=== PATIENT | male | born 1955 | race Caucasian/White ===

== ENCOUNTER 2019-08-24 09:37 | Inpatient (IN) | payer OTHER, MEDICARE ==
[~2019-08-24] VITALS: Ht 182.9 cm; Wt 62.1 kg
[2019-08-24 10:40] LABS: BASOPHILS ABSOLUTE AUTO 0.05 K/mm3 (0.00-0.23); BASOPHILS PERCENT AUTO 0 % (0-2); EOSINOPHILS ABSOLUTE AUTO 0.03 K/mm3 (0.00-0.68); EOSINOPHILS PERCENT AUTO 0 % (0-6); Hematocrit 38.5 % (37.0-53.0); Hemoglobin 11.9 g/dL (13.5-17.5); IMMATURE GRAN ABSOLUTE AUTO 0.06 K/mm3 (0.00-0.10); IMMATURE GRAN PERCENT AUTO 0 % (0-1); LYMPHOCYTES ABSOLUTE AUTO 1.93 K/mm3 (0.84-5.20); LYMPHOCYTES PERCENT AUTO 12 % (21-46); MONOCYTES PERCENT AUTO 7 % (4-13); Mean Corpuscular HGB 29.3 pg (26.0-34.0); Mean Corpuscular HGB Conc 30.9 g/dL (31.5-36.5); Mean Corpuscular Volume 95 fL (80-100); Mean Platelet Volume 10.9 fL (9.1-12.4); NEUTROPHILS ABSOLUTE AUTO 12.91 K/mm3 (1.96-9.15); NEUTROPHILS PERCENT AUTO 80 % (41-73); Platelet Count 398 K/mm3 (150-400); RDW Coefficient Variation 13.4 % (11.7-14.2); RDW Standard Deviation 46.3 fL (35.1-46.3); Red Blood Cell Count 4.06 M/mm3 (4.30-5.90); White Blood Cell Count 16.08 K/mm3 (4.00-11.30)
[2019-08-24 10:58] LABS: PO2 Arterial 55.2 mmHg (80-100); pH Blood Arterial 7.48 (7.35-7.45)
--- NOTE | 2019-08-24 11:27 | NUR ---
Pt recieved from [facility]. Nursing and RT at bedside attemtpting to stabilize pt and keep of life support. arrived Very tearfull and anxious. Review of pt with states they have had much medical care from different facilities and providers the past few months. PT relays that he had a stroke and was on a ventilator he recovered and went to rehab. He later returned to hospital with aspiration pneumonia and weakness. He now has a PEG tube and chronic decline. They do not have a primary care and presented to services in [place]. He has a polst for 08/19/2019 that is full treatment. review of the past few months with the and suggested he is declining. She sees him as having pulled through and is adamant he reamin full code. Review of her experience of life support and how this time may be different and she may need to make a had decison if treatment does not work. She wants intubation and to try to keep him going she is calling her son to come out from [place]. She understand he [facility]. Notified ER physician of conversation. RT has been working with her and keeping her updated. Notieied Notifed Dr. Kiersten Borden of pt being in ER. Asked that she call ER physician or pt to help with with decisional process. Asked to call son and discuss a plan. contacting family. Will stand by and await labs and further plan to assist . Pretty tough blunt conversation will give her a little space to process. Will see if she needs spirtual support. pt KPS score is 20.
[2019-08-24] MEDS ORDERED: FIBERSOURCE H1500 ML (11:57)
[2019-08-24] MEDS ORDERED: Humalog100 UNIT/1 SC ×2 (11:58→18:12)
[2019-08-24 12:14] LABS: Alanine Aminotransfer (ALT/SGP 30 U/L (12-78); Albumin, Blood 2.6 g/dL (3.4-5.0); Albumin/Globulin Ratio 0.4 (0.8-1.8); Alk Phos 117 U/L (50-136); Anion Gap 5 mmol/L (6-16); Aspartate Aminotrans (AST/SGOT 37 U/L (12-37); Bilirubin, Total 0.3 mg/dL (0.1-1.0); Blood Urea Nitrogen 21 mg/dL (8-24); CO2, Blood 31 mmol/L (21-32); Chloride, Blood 108 mmol/L (98-108); Creatinine, Blood 0.72 mg/dL (0.60-1.20); Glomerular Filtration Rate >60 (60-); Glucose, Blood 105 mg/dL (70-99); Potassium, Blood 3.9 mmol/L (3.5-5.5); Sodium, Blood 144 mmol/L (136-145); Total Protein, Blood 8.6 g/dL (6.4-8.2)
[2019-08-24 12:19] LABS: Adenovirus Not Detected (NOT DETECT); Bordetella pertussis Not Detected (NOT DETECT); Chlamydophila pneumoniae Not Detected (NOT DETECT); Coronavirus 229E Not Detected (NOT DETECT); Coronavirus HKU1 Not Detected (NOT DETECT); Coronavirus NL63 Not Detected (NOT DETECT); Coronavirus OC43 Not Detected (NOT DETECT); Human Metapneumovirus Not Detected (NOT DETECT); Human Rhinovirus/Enterovirus Not Detected (NOT DETECT); Influenza A/2009-H1 Not Detected (NOT DETECT); Influenza A/H1 Not Detected (NOT DETECT); Influenza A/H3 Not Detected (NOT DETECT); Influenza B Not Detected (NOT DETECT); Mycoplasma pneumoniae Not Detected (NOT DETECT); Parainfluenza Virus 1 Not Detected (NOT DETECT); Parainfluenza Virus 2 Not Detected (NOT DETECT); Parainfluenza Virus 3 Not Detected (NOT DETECT); Parainfluenza Virus 4 Not Detected (NOT DETECT); Respiratory Syncytial Virus Not Detected (NOT DETECT)
[2019-08-24] MEDS ORDERED: ATOR80 PT (12:56)
[2019-08-24] MEDS ORDERED: Prevacid Soluta30 MG PT (12:56)
[2019-08-24] MEDS ORDERED: LEVE500 PT (12:57)
[2019-08-24] MEDS ORDERED: METO25 PT (12:57)
[2019-08-24] MEDS ORDERED: BACL10 PT (12:58)
[2019-08-24] MEDS ORDERED: ACET325 PT (12:58)
[2019-08-24] MEDS ORDERED: Venlafaxine HCl50 MG PT (12:58)
[2019-08-24] MEDS ORDERED: ALBU2.5V5 NEB (12:59)
[2019-08-24] MEDS ORDERED: Morphine S10 MG/5 ML PT (13:02)
[2019-08-24] MEDS ORDERED: MYLANTA TONIGH355 ML PT (18:08)
[2019-08-24] MEDS ORDERED: SENEXON-S 50-81 EACH PT (18:09)
--- NOTE | 2019-08-24 19:03 | NUR ---
Review of pt with nught shift RT and strategies to interact with on decision making. Will follow up to see if spoke with son and what am labs show.
--- NOTE | 2019-08-24 19:05 | NUR ---
SHIFT SUMMARY PT ARRIVED TO PCU FROM ED VIA STRETCHER AROUND 1530. PT ADMITTED FOR SEPSIS SECONDARY TO PNA; ALSO TESTING FOR R/O COVID-19. PT IS AWAKE, RESPONDS TO VERBAL STIMULI, BUT DOES NOT VERBALLY COMMUNICATE; UNABLE TO ASSESS ORIENTATION STATUS. PT W/ RIGHT-SIDED DEFICITS DUE TO RECENT CVA IN APR 2019. PT PLACED ON AIRVO IN ED DUE TO LOW SATS; REMAINS ON AIRVO AT 30% FIO2, PULSE OX MAINTAINING 94-97%. HR ELEVATED ST 120'S UPON ARRIVAL TO FLOOR; AFTER ADMINISTRATION OF MEDS PT RUNNING ST 100-110'S; REMAINS AFEBRILE SINCE ARRIVAL TO FLOOR. PLAN TO CONTINUE W/ IVF & IV ABX. PT HAS PEG TUBE W/ CONTINUOUS TF, JEVITY 1.2 CURRENTLY RUNNING @ 25ML/HRL; TO BE INCREASED BY 10ML/HR Q8H TO GOAL RATE OF 40ML/HR. PT RESTING COMFORTABLY IN BED. ROSARIO AT BEDSIDE, COMPLIANT W/ ISOLATION PRECAUTIONS. REPORT GIVEN TO ONCOMING RN.
--- NOTE | 2019-08-24 19:46 | NUR ---
ASSUMED PATIENT CARE. PATIENT RESTING COMFORTABLY IN BED, AIRVO ON. NO SIGNS OF ACUTE DISTRESS, SPOUSE AT BEDSIDE. WCTM.
[2019-08-25 05:41] LABS: BASOPHILS ABSOLUTE AUTO 0.04 K/mm3 (0.00-0.23); BASOPHILS PERCENT AUTO 0 % (0-2); EOSINOPHILS ABSOLUTE AUTO 0.02 K/mm3 (0.00-0.68); EOSINOPHILS PERCENT AUTO 0 % (0-6); Hemoglobin 10.1 g/dL (13.5-17.5); IMMATURE GRAN ABSOLUTE AUTO 0.09 K/mm3 (0.00-0.10); IMMATURE GRAN PERCENT AUTO 1 % (0-1); LYMPHOCYTES ABSOLUTE AUTO 1.96 K/mm3 (0.84-5.20); LYMPHOCYTES PERCENT AUTO 12 % (21-46); MONOCYTES ABSOLUTE AUTO 0.98 K/mm3 (0.16-1.47); MONOCYTES PERCENT AUTO 6 % (4-13); Mean Corpuscular HGB 30.1 pg (26.0-34.0); Mean Corpuscular HGB Conc 31.6 g/dL (31.5-36.5); Mean Corpuscular Volume 95 fL (80-100); Mean Platelet Volume 10.2 fL (9.1-12.4); NEUTROPHILS ABSOLUTE AUTO 13.59 K/mm3 (1.96-9.15); NEUTROPHILS PERCENT AUTO 82 % (41-73); Platelet Count 309 K/mm3 (150-400); RDW Coefficient Variation 13.2 % (11.7-14.2); RDW Standard Deviation 45.1 fL (35.1-46.3); Red Blood Cell Count 3.36 M/mm3 (4.30-5.90); White Blood Cell Count 16.68 K/mm3 (4.00-11.30)
[2019-08-25 06:02] LABS: Alanine Aminotransfer (ALT/SGP 28 U/L (12-78); Albumin, Blood 2.1 g/dL (3.4-5.0); Albumin/Globulin Ratio 0.4 (0.8-1.8); Alk Phos 98 U/L (50-136); Anion Gap 5 mmol/L (6-16); Aspartate Aminotrans (AST/SGOT 39 U/L (12-37); Bilirubin, Total 0.5 mg/dL (0.1-1.0); Blood Urea Nitrogen 14 mg/dL (8-24); Bun/Creatinine Ratio 23.7 (12.0-20.0); CO2, Blood 27 mmol/L (21-32); Calcium, Blood 8.4 mg/dL (8.5-10.1); Chloride, Blood 111 mmol/L (98-108); Creatinine, Blood 0.59 mg/dL (0.60-1.20); Globulin, Blood 5.5 g/dL (2.2-4.0); Glomerular Filtration Rate >60 (60-); Glucose, Blood 110 mg/dL (70-99); Magnesium, Blood 2.2 mg/dL (1.6-2.4); Phosphorus, Blood 2.8 mg/dL (2.5-4.9); Potassium, Blood 3.5 mmol/L (3.5-5.5); Sodium, Blood 143 mmol/L (136-145); Total Protein, Blood 7.6 g/dL (6.4-8.2)
--- NOTE | 2019-08-25 06:19 | NUR ---
NO ACUTE EVENTS THIS SHIFT. PATIENT REMAINED ON TUBE FEED THIS SHIFT, MINIMAL TO NO RESIDUALS NOTED WITH EACH MEDICATION ADMINISTRATION. PATIENT TOLERATED REPOSITIONING BY 2 STAFF MEMBERS WELL. PATIENT ON AIRVO THIS SHIFT, O2 SATURATION IN THE 90S. PATIENT REMAINED IN SINUS TACH THIS SHIFT.
--- NOTE | 2019-08-25 14:36 | NUR ---
Spiritual care visit conducted. Patient is lying in bed and reny's Jane is bedside. I ask Jane if she could come out of patient's room and talk with me for a few moments. Jane sits outside patient's room and tells the story of their life of 44 years of being , their family, their sahil, their assisted and patient's medical history. Jane talks about being prepared if patient doesn't make it but wanting to do everything as far as treatment goes until then. I try to establish therapeutic alliance and listen empathically. I also go into patient's room with Jane and provide prayer according to their belief system and their amish tradition. Jane voices appreciation. I will continue to remain available to patient and family.
--- NOTE | 2019-08-25 19:00 | NUR ---
ASSUMED CARE ASSUMED CARE OF PATIENT. IS AT BEDSIDE. PT REMAIN IN AIRBORNE ISOLATION PRECAUTIONS FOR R/O COVID-19. REMAINS ON AIRVO 50L/FIO2 77%. RESPIRATIONS UNLABORED, BUT SHALLOW. OCCASIONAL MOIST COUGH. JEVITY 1.2 VIA PEG TUBE AT GOAL RATE OF 40CC/HR WITH 135CC H20 Q4H. INCONTINENT OF URINE- ATTENDS IN PLACE. SEE SHIFT ASSESSMENT FOR FULL ASSESSMENT.
--- NOTE | 2019-08-25 19:00 | NUR ---
SHIFT SUMMARY PT CURRENTLY RESTING IN BED IN NO DISTRESS. PT DID DESAT INTO THE 80'S AT ONE POINT ON AIRVO; RT BUMPED PT UP TO 50L, 80% FI02; PULSE OX MAINTAINING 95-97%. NO OTHER ACUTE CHANGES THROUGHOUT SHIFT. PT TOLERATING TUBE FEEDS WELL VIA PEG; JEVITY 1.2 SDAAF RUNNING @ GOAL RATE OF 40ML/HR. Q2HR TURNS, FREQ MOUTH CARE, & FREQ INCONTINENCE CARE RENDERED THROUGHOUT SHIFT. PT TO CONTINUE W/ IVF & IV ABX FOR PNA. COVID-19 RESULTS STILL PENDING, PT REMAINS IN ISOLATION. PT DOES NOT COMMUNICATE VERBALLY, BUT DOES NOT SHOW SIGNS OF PAIN OR SOB. REPORT GIVEN TO ONCOMING RN.
--- NOTE | 2019-08-25 19:22 | NUR ---
Extensive visit with regarding plan of care. She relayed her journey with her husbands care over the past few months...very stressful. She needs help with a plan for his medicare needs. We reviewed further rehab potential and eventual hospice and and advance care plan of each stage. Review with child care group leader of pt needs and needs. Best plan would be getting him to where he can attemtp rehab and back to [place] and transition to hospice if rehab fails. Will assist with getting her resources of information and incourage dialoge with her son. Pt does not drive well and is showing significant fatigue and caregiver stress. Chaplisamy Talamantes has given her significant support. At this point she wants to stay the course.
--- NOTE | 2019-08-26 06:22 | NUR ---
SHIFT SUMMARY NO ACUTE CHANGES DURING NOC. REMAINS IN AIRBORNE ISOLATION FOR R/O COVID-19. AT BEDSIDE T/O NOC. REPOSITIONED AND ATTENDS CHANGED APPROXIMATELY Q 2-3H PRN. NS INFUSING @ 150CC/HR. REMAINS ON AIRVO. SATS STABLE. CONTINUES WITH MOIST COUGH, OCCASIONALLY PRODUCTIVE OF THICK TANNISH-YELLOW SPUTUM. VSS T/O NOC. TMAX 100.0F. WILL REPORT TO DAY SHIFT RN WHEN AVAILABLE.
--- NOTE | 2019-08-26 08:30 | NUR ---
PT REMAINS NON-VERBAL. NO NOTED NEURO CHANGES. PT SEEMS TO RECOGNIZE HIS SPOUSE AND RESPONDS TO HER AT TIMES. PT OPENED HIS MOUTH WHEN RN ASKED HIM TO PRIOR TO ORAL CARE. TEMP 99.4 HR 100-110'S ST. BP WNL. LUNGS REMAIN COARSE T/O AND DIMINISHED IN BASES. ORAL CARE/YANKEUR SUCTION PRODUCTIVE OF COPIOUS, THICK, YELLOW TINGED SECRETIONS. SATS>90% ON AIRVO. TOLERATED PEG TF WELL. CBG 74-NO COVERAGE REQUIRED. PT INCONTINENT OF URINE-JESSE CARE DONE AND CALAZIME APPLIED TO EXCORIATE AREA. NO NOTED REDNESS TO COCCYX OR BUTTOCKS-CONTINUE TO TURN Q 2 HOURS. PT REMAINS IN ENHANCED PRECAUTIONS. NO RESULTS FOR [id number] PENDING. DISCUSSED PLAN OF CARE WITH PT SPOUSE-HER ONLY QUESTION WAS IN REGARD TO COVID-19 TESTING-PT SPOUSE AWARE THAT RESULTS OF THIS ARE NOT BACK YET.
--- NOTE | 2019-08-26 10:01 | NUR ---
Attempted to wean oxygen from 50L flow on Airvo and 50 %, as spo2 was 99% while Dr. Corona was here in the room; however, slight adjustment resulted in spo2 dropping to 86%. Heart rate stayed constant at 100s , less than 115 bpm. Oxygen was returned to its original flow and spo2 improved back to 98%.
--- NOTE | 2019-08-26 15:54 | NUR ---
PT SPOUSE SUMMONED RN TO ROOM PT SATS 83%-ORAL CARE AND YANKEUR SUCTION PRODUCTIVE OF MODERATE AMOUNT OF THICK, YELLOW SECRETIONS- AIRVO @ 40 L/MIN WITH FIO2 51%-SATS RETURNED TO >90% AFTER SUCTIONING.LUNGS TIGHT THROUGH OUT.
--- NOTE | 2019-08-26 17:48 | NUR ---
PT MAINTAINING SATS>90% NO NOTED SOB OR INCREASED WOB AT THIS TIME. INCONTINENT OF BOTH URINE AND STOOL. COMPLET BED BATH AND LINEN CHANGE COMPLETED. PT REPOSTIONED TO RIGHT SIDE.
--- NOTE | 2019-08-26 18:16 | NUR ---
SPOKE WITH REGARDING CBG Q 6 HOURS. PATIENT HAS NOT REQUIRED COVERAGE. PHONE ORDER GIVEN TO DISCONTINUE CBG AND COVERAGE.
--- NOTE | 2019-08-26 19:22 | NUR ---
NO ACUTE CHANGES. REPORT GIVEN TO JENNIFER KOENIG.
[2019-08-27 06:05] LABS: Hematocrit 26.3 % (37.0-53.0); Hemoglobin 8.5 g/dL (13.5-17.5); Mean Corpuscular HGB 29.7 pg (26.0-34.0); Mean Corpuscular HGB Conc 32.3 g/dL (31.5-36.5); Mean Platelet Volume 10.1 fL (9.1-12.4); Platelet Count 219 K/mm3 (150-400); RDW Coefficient Variation 12.6 % (11.7-14.2); RDW Standard Deviation 42.2 fL (35.1-46.3); Red Blood Cell Count 2.86 M/mm3 (4.30-5.90); White Blood Cell Count 6.75 K/mm3 (4.00-11.30)
[2019-08-27 06:07] LABS: Mean Corpuscular Volume 92 fL (80-100)
[2019-08-27 06:21] LABS: Albumin, Blood 1.8 g/dL (3.4-5.0); Anion Gap 5 mmol/L (6-16); Blood Urea Nitrogen 10 mg/dL (8-24); Bun/Creatinine Ratio 23.3 (12.0-20.0); CO2, Blood 28 mmol/L (21-32); Calcium, Blood 8.1 mg/dL (8.5-10.1); Chloride, Blood 107 mmol/L (98-108); Creatinine, Blood 0.43 mg/dL (0.60-1.20); Glomerular Filtration Rate >60 (60-); Glucose, Blood 126 mg/dL (70-99); Phosphorus, Blood 2.2 mg/dL (2.5-4.9); Potassium, Blood 2.9 mmol/L (3.5-5.5); Sodium, Blood 140 mmol/L (136-145)
--- NOTE | 2019-08-27 08:04 | NUR ---
SHIFT SUMMARY PT NON-VERBAL; SPOUSE AT BEDSIDE; TUBE FEEDING INFUSING APPROPRIATELY; 90ML FLUSH Q 4HR; Q2 TURNS PROVIDED; O2 SATS >94 ON AIRVO TITRATED PER RT TO 25%; COARSE LUNG SOUNDS; R ARM FLACCID; R LEG STIFF DUE TO STROKE IN APRIL 2019; PT INCONTINENT; ATTENDS IN PLACE AND FOLDED LOOSELY TO PROVIDE AIR FLOW; SKIN REDDENED; LOTIONS APPLIED FOR SKIN CARE; NSR W/ 80'S-90'S NOTED ON TELE; CALL LIGHT IN REACH; BED IN LOWEST POSITION; REPORT GIVEN TO DAY SHIFT RN.
--- NOTE | 2019-08-27 17:48 | NUR ---
SHIFT SUMMARY PT ALERT; NON VERBAL AT BASELINE; ORIENTED TO SELF AND FAMILY. PT RESTING IN BED; Q2 REPOSITION FOR COMFORT AND PRESSURE ULCER PREVENTION. NO S/SX IN PAIN OR NAUSEA. PT ON AIRVO 20L AT 35% THIS AM; RT TITRATED TO 20L AT 26% THIS AFTERNOON; SPO2 >90% T/O SHIFT. PT RECEIVING TUBE FEEDINGS AT 55ML/HR AND 90ML FLUSH Q4. MINIMAL RESIDUAL NOTED T/O SHIFT. MEDICATIONS ADMINISTERED IV OR PT. VSS. NO OTHER ACUTE CHANGES NOTED. WILL CONTINUE TO MONITOR UNILT REPORT GIVEN TO ONCOMING RN.
[2019-08-28 04:31] LABS: Anion Gap 5 mmol/L (6-16); Blood Urea Nitrogen 9 mg/dL (8-24); Bun/Creatinine Ratio 19.3 (12.0-20.0); CO2, Blood 28 mmol/L (21-32); Calcium, Blood 8.2 mg/dL (8.5-10.1); Chloride, Blood 106 mmol/L (98-108); Creatinine, Blood 0.47 mg/dL (0.60-1.20); Glomerular Filtration Rate >60 (60-); Glucose, Blood 96 mg/dL (70-99); Potassium, Blood 3.2 mmol/L (3.5-5.5); Sodium, Blood 139 mmol/L (136-145)
--- NOTE | 2019-08-28 07:33 | NUR ---
SHIFT SUMMARY PT ALERT; SPOUSE AT BEDSIDE; Q2 TURNS PERFORMED; ROM W/ REPOSITIONING; ORAL CARE AND FREQUENT SUCTIONING PERFORMED; PT HAS COPIOUS SECRETIONS, WHITE AND STRINGY; TUBE FEEDING RUNNING AT 55; 90 ML FLUSH Q 4; RT TITRATED PT TO 3 L NC; O2 SATS > 94; NSR NOTED ON TELE W/ HR 90'S; PT PROGRESSING AND IS MORE ALERT AND RESPONSIVE; PT SMILED THIS AM AND NODDED HEAD YES TO QUESTIONS; PT HAD A RESPONSIVE SMIRK APPROPRIATELY TO A JOKE MADE; CALL LIGH IN REACH AND SPOUSE EDUCATED TO CALL FOR NEEDS; BED IN LOWEST POSITION; REPORT GIVEN TO DAY SHIFT RN
--- NOTE | 2019-08-28 17:41 | NUR ---
SHIFT SUMMARY NO ACUTE CHANGES THROUGHOUT SHIFT. PT'S MENTAL STATUS AT BASELINE; ALERT, BUT NONVERBAL. VSS, PT HAS BEEN ON 3L O2 VIA NC, TOLERATING WELL; PULSE OX MAINTAINING BETWEEN 98-100%, NO S/S OF DISTRESS. PLAN TO CONTINUE TX FOR PNA W/ IV ABX. COVID-19 RESULTS STILL PENDING; PT REMAINS ON ENHANCED ISOLATION PRECAUTIONS. HAS BEEN AT BEDSIDE & COMPLIANT W/ PPE REQUIREMENT. PT TOLERATING TF FEEDS WELL VIA PEG, JEVITY 1.2 SADAF RUNNING @ 55ML/HR, 90ML FLUSHES ADMINISTERED Q4HR. FREQ INCONTINENCE CARE, Q2HR TURNS, & MOUTH CARE PROVIDED THROUGHOUT SHIFT. ATTENDS IN PLACE. PT RESTING COMFORTBALY IN BED. WILL CONTINUE TO MONITOR UNTIL END OF SHIFT.
--- NOTE | 2019-08-29 07:32 | NUR ---
ASSUMED PATIENT CARE. PATIENT RESTING COMFORTABLY IN BED, EQUAL BILATERAL CHEST RISE WITH BREATH. NO SIGNS OF ACUTE DISTRESS, SPOUSE AT BEDSIDE. WCTM.
--- NOTE | 2019-08-29 07:54 | NUR ---
SHIFT SUMMARY PT ALERT AND MORE RESPONSIVE THAN PREVIOUS SHIFT; SPOUSE AT BEDSIDE; Q2 TURNS PERFORMED; ORAL CARE PERFORMED; MOUTH MOISTURIZER AND CHAPSTICK APPLIED;PEG TUBE FLUSHING APPROPRIATELY @ 55; FLUSH 90 ML Q4; PT ABLE TO NOD HEAD YES, AND SMILE; ABLE TO ASSESS PAIN LEVEL WITH YES/NO QUESTIONS; PT EDUCATION W/ PAIN SCALE; O2 SATS >94 ON 3L NC; VSS; NO SIGNS OF DISTRESS; ROM PERFORMED W/ CHANGES AND TURNS; R LEG STIFF; PT ABLE TO STRAIGHTEN L LEG ON COMMAND; CALL LIGHT IN REACH; BED IN LOWEST POSITION; REPORT GIVEN TO DAY SHIFT RN.
[2019-08-29 09:20] LABS: Anion Gap 6 mmol/L (6-16); Blood Urea Nitrogen 7 mg/dL (8-24); Bun/Creatinine Ratio 21.7 (12.0-20.0); CO2, Blood 27 mmol/L (21-32); Calcium, Blood 8.7 mg/dL (8.5-10.1); Chloride, Blood 107 mmol/L (98-108); Creatinine, Blood 0.32 mg/dL (0.60-1.20); Glomerular Filtration Rate >60 (60-); Glucose, Blood 107 mg/dL (70-99); Phosphorus, Blood 3.4 mg/dL (2.5-4.9); Potassium, Blood 3.4 mmol/L (3.5-5.5); Sodium, Blood 140 mmol/L (136-145)
--- NOTE | 2019-08-29 13:57 | NUR ---
REPORT GIVEN TO GEOFF RODRIGUEZ IN MEDICAL.
--- NOTE | 2019-08-29 14:50 | NUR ---
PATIENT TRANSFERED TO . 360.
--- NOTE | 2019-08-29 15:08 | NUR ---
SHIFT SUMMARY PT RECEIVED FROM PCU 5 RN. PT WAS ASSISTED TO HIS NEW ROOM WITH AT HIS SIDE. PT IS NON VERBAL BUT HAS NO S/S OF PAIN OR DISTRESS. VSS. 4 LPM VIA N.C. WITH DIMINISHED LUNG SOUNDS. PER RN REPORT PT HAS BEEN USING SUCTION WITH NURSE ASSIST TO HELP CLEAR SECRETIONS. PT HAS AN INTACT BLISTER ON HIS RIGHT HEEL. PEG TUBE SITE WAS CLEANSED AND TUBE FEEDING IS RUNNING ORDERED. PT IS RESTING COMFORTABLY IN BED. HE SMILES WITH INTERACTION AND HAS SPONTANEOUS MOVEMENT IN HIS RLE BUT NO RESPONSE IN THE LLE. RIGHT HAND HAS A VERY MILD GRASP. REMAINS AT THE BEDSIDE AND IS ABLE TO CALL WHEN NEEDED.
--- NOTE | 2019-08-29 15:41 | NUR ---
Spiritual care visit conducted. I met with patient's spouse, Jane in the hallway and learned about patient's progression and about Jane's increase in rest as patient needs less section due through out the night due to patient's decrease in coughing. I listen empathically, normalize Jane's experience, encourage self-care and provide a calming presence. I will continue to remain available to patient and family.
--- NOTE | 2019-08-30 03:27 | NUR ---
SUMMARY: PT IS A/O TO SELF AND FAMILY AND SEEMS TO BE AWARE OF SITUATION AND EVENT BUT HAS APHASIA. HE FOLLOWS COMMANDS AND OCCASIONALLY NODS YES/NO TO PROMPTS. HIS REMAINS AT BEDSIDE AND ASSISTS W/CARE PRN. R.SIDE WEAKNESS FROM RECENT CVA NOTED. RLE IS CONTRACTED AND R.ARM FLACCID. L.ARM AND LEG ARE WEAK W/TURN SCHEDULE MAINTAINED. ATTENDS CHANGED PRN FOR INCONTINENCE. HE REMAINS IN ISO FOR R/O COVID. NO RESP DISTRESS OR COUGH OBSERVED THIS SHIFT AND PT REMAINS ON 3L O2 W/SPO2 WNL. RESPS E/U AT REST AND ORAL SUCTIONING ATTENDED TO PRN, PT HAVING VERY LITTLE SECRETIONS. LS WERE CLEAR AND DIM TO BASES. HE REMAINS NPO W/PEG TUBE INFUSING AT 55 ML/HR, NO RESIDUALS OR S/S ASPIRATION OBSERVED. IV ABX RECIEVED FOR PNM THEN SL. MOUTH CARE PROVIDED PRN. HEEL PROTECTORS INTACT TO BLE'S. NO ACUTE CHANGES, VSS/AFEBRILE. WCTM AND REPORT TO DAY RN.
--- NOTE | 2019-08-30 15:12 | NUR ---
Spiritual care visit conducted. I talked with patient's spouse, Jane, in the 3rd floor waiting area. Jane tells me about patient's current status, about his plan of care, about the insurance and placment issues and about the wonderful support she has received from the hospital staff. Jane also explains about her spiritual journey and the peace that she has whether patient improves or if he dies. Jane goes on to speak about some of the ups and downs with the patient and how they have grown together. She still does have concerns and worries at times. I listen empathically, conduct a life review and provide pastoral skilled nursing facility counselor, recitation of scripture and prayer. Patient responds well and shows signs of increased sahil. Patient verbalizes appreiciation. I will continue to remain available to patient and family.
--- NOTE | 2019-08-30 17:25 | NUR ---
SHIFT SUMMARY- PT IS NONVERBAL, ALERT AND PLESANT. HIS WAS WAS AT THE BEDSIDE FOR THE DURATION OF THIS SHIFT. HE IS INCONTINENT WITH ATTENDS IN PLACE. HE HAD A BM THIS AFTERNOON. HE IS ON CONTINIOUS FEED TROUGH HIS PEG TUBE. MEDICATIONS ARE CRUSHED AND DELIVERED THROUGH THE TUBE. SUCTION IS AT THE BEDSIDE AND IS SUCTIONING HIM NEEDED. HE IS IN ISOLATION FOR COVRI R/O.
--- NOTE | 2019-08-30 20:19 | NUR ---
Theraputic time with she got medicare papaers processed today. pt showing sighn of improvment goal is discharge to SNF near home
--- NOTE | 2019-08-30 23:49 | NUR ---
SHIFT ASSESSMENT COMPLETED W/HS MEDS AT 1999 BUT WAS ENTERED LATE NOW.
--- NOTE | 2019-08-31 01:35 | NUR ---
NEW 20G IV PLACED TO R.FA D/T PREVIOUS IV LEAKING SO WAS DC'D.
[2019-08-31 04:56] LABS: BASOPHILS ABSOLUTE AUTO 0.02 K/mm3 (0.00-0.23); BASOPHILS PERCENT AUTO 0 % (0-2); EOSINOPHILS ABSOLUTE AUTO 0.28 K/mm3 (0.00-0.68); EOSINOPHILS PERCENT AUTO 4 % (0-6); Hematocrit 30.7 % (37.0-53.0); Hemoglobin 9.8 g/dL (13.5-17.5); IMMATURE GRAN ABSOLUTE AUTO 0.03 K/mm3 (0.00-0.10); IMMATURE GRAN PERCENT AUTO 0 % (0-1); LYMPHOCYTES ABSOLUTE AUTO 1.29 K/mm3 (0.84-5.20); LYMPHOCYTES PERCENT AUTO 17 % (21-46); MONOCYTES PERCENT AUTO 9 % (4-13); Mean Corpuscular HGB 28.7 pg (26.0-34.0); Mean Corpuscular HGB Conc 31.9 g/dL (31.5-36.5); Mean Corpuscular Volume 90 fL (80-100); Mean Platelet Volume 10.1 fL (9.1-12.4); NEUTROPHILS ABSOLUTE AUTO 5.52 K/mm3 (1.96-9.15); NEUTROPHILS PERCENT AUTO 70 % (41-73); Platelet Count 341 K/mm3 (150-400); RDW Coefficient Variation 12.8 % (11.7-14.2); Red Blood Cell Count 3.41 M/mm3 (4.30-5.90); White Blood Cell Count 7.84 K/mm3 (4.00-11.30)
[2019-08-31 05:13] LABS: Albumin, Blood 2.1 g/dL (3.4-5.0); Anion Gap 6 mmol/L (6-16); Blood Urea Nitrogen 8 mg/dL (8-24); Bun/Creatinine Ratio 15.7 (12.0-20.0); CO2, Blood 28 mmol/L (21-32); Calcium, Blood 8.2 mg/dL (8.5-10.1); Chloride, Blood 104 mmol/L (98-108); Creatinine, Blood 0.51 mg/dL (0.60-1.20); Glomerular Filtration Rate >60 (60-); Glucose, Blood 112 mg/dL (70-99); Potassium, Blood 3.7 mmol/L (3.5-5.5); Sodium, Blood 138 mmol/L (136-145)
--- NOTE | 2019-08-31 05:55 | NUR ---
SUMMARY: A/O TO SELF, FAMILY AND APPEARS TO COMPREHEND SITUATION/PLACE. HE IS MOSTLY NONVERBAL W/APHASIA POST CVA IN BUT MAKES EYE CONTACT, SMILES AND OCCASIONALLY SAYS SOME WORDS. TURN SCHEDULE MAINTAINED D/T EXCORIATION TO BUTTOCKS, RLE CONTRACTURES AND R.ARM FLACIDITY. ATTENDS AND LINEN CHANGED PRN FOR INCONTINENCE OF STOOL/URINE THIS SHIFT. CREAM APPLIED TO BUTTOCKS PRN AND HEEL PROTECTORS IN PLACE. PT ON IV ABX FOR ASP PNM THEN SL. HE IS NPO W/ CONTINUOUS PEG TUBE FEEDING AT 60 ML/HR, NO RESIDUALS OBSERVED. MOUTH CARE PROVIDED PRN AND SUCTIONING ATTENDED TO. HE REMAINS IN ISO FOR R/O COVID, RESULTS PENDING. STAYS AT BEDSIDE AND ASSISTS W/CARE NEEDS ABLE. NO ACUTE CHANGES, VSS/AFEBRILE. WCTM AND REPORT TO DAY RN.
--- NOTE | 2019-08-31 13:04 | NUR ---
placed on humidifier after rt visit see rt notes.
--- NOTE | 2019-08-31 14:06 | NUR ---
up into recliner in sitting up position with 2 rns and yolanda lift with sling. patient tolerated move well.
--- NOTE | 2019-08-31 18:36 | NUR ---
SHIFT SUMMARY ASSUMED CARE OF PT APPROX 1500. WAS MECHANICALLY LIFTED FROM RECLINER CHAIR TO BED AND CLEANED UP. AT BEDSIDE THROUGHOUT AFTERNOON. LIFTS EYEBROWS WHEN HE IS SPOKEN TO. ABLE TO LIFT HIS L ARM TO HAVE PILLOW PLACED FOR POSITIONING. HEEL PROTECTORS IN PLACE.
[2019-09-01 05:15] LABS: PCO2 Arterial 42.2 mmHg (35-45); PO2 Arterial 125 mmHg (80-100); pH Blood Arterial 7.45 (7.35-7.45)
--- NOTE | 2019-09-01 06:08 | NUR ---
SHIFT SUMMARY PATIENT ALERT BUT NON-VERBAL. HIS RIGHT KNEE IS SWOLLEN AND HAS A BRUISE ON IT, HIS REPORTS THAT IT IS OCCASIONALLY WARM AND IS CONCERNED THAT IT COULD BE INJURED FROM A RECENT FALL. THIS NURSE ENCOURAGED THE PATIENT'S TO BRING UP HER CONCERNS WITH THE PHYSICIAN DURING ROUNDS IN THE MORNING AFTER ASSESSING THE KNEE. THIS NURS ALSO MEDICATED THE PATIENT FOR PAIN PER EMAR HE AND HIS INDICATED THAT HIS KNEE WAS HURTING. IT WAS EFFECTIVE AND HE WAS ABLE TO GET TO SLEEP. IV PATENT AND FLUSHED. BED IN LOWEST POSITION WITH WHEELS LOCKED. CALL LIGHT WITHIN REACH. REPORT GIVEN TO ONCOMING RN.
--- NOTE | 2019-09-01 07:00 | NUR ---
ASSUMED CARE OF PT- REPORT RECIEVED FROM NIGHT RN. PT SPOUSE AT THE BEDSIDE PROVIDING THE PT SUCTION NEEDED. PT REQUIRING ORAL SUCTION HOURLY. PT HAS ORDERS FOR DEEP SUCTION PRN IF NEEDED CALL RT. PT SATS MAINTAINING AT 94% ON ROOM AIR AT THE START OF THE SHIFT PER RT, PT NC WAS NOT IN PLACE BUT WAS ON THE PT, ON THE SIDE OF HIS FACE, RT REPLACED THE CANNULA.
--- NOTE | 2019-09-01 08:30 | NUR ---
CALLED RT EMA FOR DEEP SUCTION. PT UNABLE TO COUGH AND CLEAR, O2 SATS 82-84% ON 2L VIA NC. RT EMA CAME AND DEEP SUCTIONED MODERATE AMOUNT OF THICK LIGHT YELLOW SPUTUM AND PT O2 SATS CAME UP TO 97%. PT DID HAVE A SLIGHT GAG REFLEX WHEN HE WAS SUCTIONED. PT SPOUSE IS DOING ORAL SUCTIONING PT NEEDS.
--- NOTE | 2019-09-01 13:57 | NUR ---
PT ALERT AND MUMBLES SOME ANSWERS WHEN STAFF SPEAK TO HIM. PT O2 SATS ON ROOM AIR 95%. SPOUSE IS DOWN GETTING LUNCH. PT RELAXED WITH NO S&S OF DISTRESS NOTED.
--- NOTE | 2019-09-01 15:03 | NUR ---
Patient is not in isolation so I visit with patient and Jane. I get a few smirks out of patient and some mumbling but not any clear communication. I hear from Jane about the current plan of care and about the gratitude she has that the doctors are allowing him to get a few days more of the breathing treatments before DC. I provide companionship and prayer. Jane verbalizes appreciation for the time and prayer. I will continue to remain available to patient and family.
--- NOTE | 2019-09-01 18:45 | NUR ---
SHIFT SUMMARY- PT HAS BEEN REPOSITIONED FREQUENTLY T/O THE SHIFT. PT HAS BEEN MORE ALERT THIS AFTERNOON AND EVENING, WHEN COMPARED TO THIS MORNING. PT HAS NOT REQUIRED THE DEEP SUCTION SINCE 0830 THIS MORNING. ORAL SUCTION WAS NOT NEEDED FOR SEVERAL HOURS. SPOUSE IS AT THE BEDSIDE. PT WAS ASSISTED WITH THE LIFT UP INTO A CHAIR AT AROUND 1700. SPOUSE HAS BEEN DOING EXERCISES WITH THE PT. PEG TUBE FEEDING IS RUNNING CONTINUIOUS RESIDUAL CHECKS WERE REVEALING AIR OR GAS MINIMAL RESIDUAL (5ML). PLAN IS FOR PT TO DISCHARGE TO SNF (COVID R/O RESULTS TODAY NEGATIVE FOR COVID 19) HOWEVER SINCE THE PT REQUIRED DEEP SUCTION TODAY AND YESTERDAY, PT CAN NOT GO TO SNF WITH SUCTION ORDERS.
--- NOTE | 2019-09-02 06:33 | NUR ---
SHIFT SUMMARY PATIENT ALERT, UNABLE TO SPEAK DUE TO STROKE. IS ROOMING IN. PATIENT HAS BEEN HAVING A WET SOUNDING COUGH AND IS HAVING TROUBLE CLEARING SECRETIONS. PATIENT'S HAS BEEN PERFORMING ORAL SUCTIONING, NT SUCTIONING CURRENTLY BEING DONE BY THE RT. PEG TUBE PATENT AND INFUSING. IV PATENT AND FLUSHED. BED IN LOWEST POSITION WITH WHEELS LOCKED. CALL LIGHT WITHIN REACH. REPORT GIVEN TO ONCOMING RN.
--- NOTE | 2019-09-02 18:10 | NUR ---
NO ACUTE CHANGES TO PATIENT THIS SHIFT.
--- NOTE | 2019-09-03 04:50 | NUR ---
ELECTRICAL LABORATORY TECHNICIAN SUMMARY Slept well between every two hour turn and changes. Jane stated he was much more restful than the previous night. Tolerated tube feed at 120ml/hr. 60 ml residual prior to being medicated at HS. Indicated generalized pain at that time, and was given tylenol with good result. Area of groin and gluteal folds red and macerated in appearance. Patient is very frequently incontinent. When area is cleansed every 2 hours, combination silicone and calmoseptine gently applied. very supportive is staying in room with patient.
--- NOTE | 2019-09-03 07:01 | NUR ---
NO RESIDUAL AT 0600 WHEN OMEPRAZOLE ADMINISTERED.
--- NOTE | 2019-09-03 11:37 | NUR ---
HE HAS BEEN MOSTLY SLEEPING. HIS HAS TOO BUT RECENTLY GOT UP TO TAKE A SHOWER. HE HAS BOOTS ON HIS FEET TO HELP PREVENT FOOTDROP. I LOOSENED THOSE, RUBBED HIS HEALS AND STRAPPED THEM BACK UP DURING ASSESSMENT. TUBE FEEDING RESUMED AT 0830 FOR TODAY'S 12 HRS.
--- NOTE | 2019-09-03 14:20 | NUR ---
HIS CAME OUT IN THE JONES TO GET ME BECAUSE HIS BIOX DROPPED DOWN INTO THE 80'S. I PUT 2L O2 ON INSTEAD OF RA, SUCTIONED THE BACK OF HIS THROAT AND CHANGED HIS BIOX SENSOR, HIS NASAL CANNULA AND HIS SUCTION WAND. HE DOES NOT LOOK IN DISTRESS, BUT HIS DOES. I SPOKE WITH THE RT. SHE WILL ASSESS HIM AROUND 3PM. HIS BIOX IS NOW 90% ON 2L. THE SOFTWARE PRODUCT MANAGER TOOK HIS 'S CLOTHES TO THE WASHING MACHINE.
--- NOTE | 2019-09-03 15:14 | NUR ---
CURRENTLY 99% ON 2L. TURNED DOWN TO 1L. WILL TRY TO WEAN O2 OFF AGAIN.
--- NOTE | 2019-09-03 18:44 | NUR ---
NO CHANGES EXCEPT HE IS BACK ON RA THE PAST 3 HRS OR SO. NO DEEP SUCTION TODAY. WILL GET CPT AGAIN SOON. TUBE FEEDING NEARLY DONE FOR THE DAY. DRESSING STILL DRY AND INTACT.
--- NOTE | 2019-09-04 05:32 | NUR ---
CHEMIST INTERNSHIP SUMMARY Patient had a good start to the night. More alert than previous night, Able to smile and nod appropriately in response to simple questions or requests. Maintained 02 sats >90% until approx 0400 in AM when Spouse called out to say Pop 02 was maintaining in mid 80's. 012 was replaced and turned up to 3L nasal cannula with very minimal effect on patient's saturation. RT was called and deep suctioning was performed resulting in immediate increase to 93-95% on room air. Patient did have small nose bleed, and RT did instruct to try not to perform even oral suctioning for next couple of hours. Renetta-rectal rash looks improved since previous night. still very red, but no longer looks macerated.
--- NOTE | 2019-09-04 06:15 | NUR ---
Toileting On 09/04/19 at 0430, This MATTING PRESS TENDER and the Rn turned and changed the patient. usually the next time the patient would be changed would be 0600, but due to special circumstances, the RN has decided to leave the patient alone because the family had requested to get some rest. According to the of the patient, they had been awake all night and would like to get some rest,
--- NOTE | 2019-09-04 12:34 | NUR ---
HE IS ASLEEP IN THE RECLINER CHAIR. BACK OF CHAIR UPRIGHT BUT LEGS ELEVATED. HE IS WEARING HIS SOFT BOOTS TO PREVENT FOOTDROP. HE HAS BEEN BATHED AND A LIFT WAS USED TO TRANSFER HIM INTO THE CHAIR. HE HAS HAD ORAL CARE, ORAL SUCTION, CPT BY VEST, AND DEEP SUCTION BY RT ONCE. HIS TUBE FEEDING IS GOING WELL. THE SIZER HAND CHANGED HIS ORDERS SLIGHTLY. JESSE AREA STILL RED. CREAMS APPLIED. IT IS IMPROVING. PRESENT MOST OF THE TIME.
--- NOTE | 2019-09-04 14:09 | NUR ---
AT CHAIRSIDE. HE IS COMFORTABLE. HE REMAINS NONVERBAL. WHEN SHE TOLD HIM TO LOOK OUT THE WINDOW AT THE RAIN, HE TURNED HIS HEAD SLIGHTLY RIGHT TO LOOK AT IT. HE OFTEN SMILES WITH HIS EYES AND SOMETIMES WITH HIS MOUTH. JEVITY 1.2 CONTINUOUS FEEDING ONGOING. NO RESIDUAL WHEN I JUST ADMINISTERED A MEDICATION.
--- NOTE | 2019-09-04 17:51 | NUR ---
HE WAS UP IN THE RECLINER CHAIR FOR THE MIDDLE OF THE SHIFT. HE HAD 2 STOOLS TODAY IN ATTENDS. REDDENED JESSE-RECTAL AREA SLOWLY IMPROVING. HAS TOLERATED THE JEVITY TUBE FEEDING. PEG SITE WNL. AT BEDSIDE MOST OF THE TIME. HE SEEMS TO UNDERSTAND WHAT IS BEING SAID BUT IS APHASIC. NO DECUBITUS ULCERS ANYWHERE. DEEP SUCTIONED X1 TODAY. CPT WITH THE VEST BID.
[2019-09-05 05:25] LABS: Hematocrit 33.8 % (37.0-53.0); Hemoglobin 10.6 g/dL (13.5-17.5); Mean Corpuscular HGB Conc 31.4 g/dL (31.5-36.5); Mean Platelet Volume 9.6 fL (9.1-12.4); Platelet Count 568 K/mm3 (150-400); RDW Coefficient Variation 13.4 % (11.7-14.2); RDW Standard Deviation 45.4 fL (35.1-46.3); Red Blood Cell Count 3.65 M/mm3 (4.30-5.90); White Blood Cell Count 8.22 K/mm3 (4.00-11.30)
--- NOTE | 2019-09-05 05:25 | NUR ---
POULTRY FARMWORKER SUMMARY patient required NT suction once over the shift. 02 sats dropped to 79% after strong coughing and oral suction was not helping at all. Patient tolerated well with no evident trauma from procedure. Large mushy bowel mvmt early in evening with urine. combination silicone and protectant paste applied to gluteal and groin folds as well as scrotum to red excoriated rash each time pt was cleansed and changed during turning. Tylenol given once for generalized comfort.
[2019-09-05 05:26] LABS: Mean Corpuscular Volume 93 fL (80-100)
[2019-09-05 05:41] LABS: Albumin, Blood 2.5 g/dL (3.4-5.0); Anion Gap 4 mmol/L (6-16); Blood Urea Nitrogen 15 mg/dL (8-24); Bun/Creatinine Ratio 29.1 (12.0-20.0); CO2, Blood 32 mmol/L (21-32); Calcium, Blood 8.8 mg/dL (8.5-10.1); Chloride, Blood 104 mmol/L (98-108); Creatinine, Blood 0.52 mg/dL (0.60-1.20); Glomerular Filtration Rate >60 (60-); Glucose, Blood 90 mg/dL (70-99); Phosphorus, Blood 4.2 mg/dL (2.5-4.9); Potassium, Blood 3.9 mmol/L (3.5-5.5); Sodium, Blood 140 mmol/L (136-145)
--- NOTE | 2019-09-05 18:19 | NUR ---
SHIFT SUMMARY- PT ALERT TO SELF AND SPOUSE, UNABLE TO DETERMINE COGNITION. PT MUMBLES AND WISPERS IN ANSWER BUTIS DIFFICULT TO UNDERSTAND. PT SPOUSE IS AT THE BEDSIDE. PT REQUIRED DEEP SUCTION ONCE THIS SHIFT EARLY IN THE DAY. PT WAS GOTTEN UP INTO THE CHAIR VIA THE LIFT AND SAT UP IN THE CHAIR FOR THREE HOURS. TUBE FEEDING WAS STARTED AT 0945 IN [place] OF 0800. END TIME SHOULD BE ADJUSTED TO MATCH SO 2144. WILL PASS ON IN BEDSIDE REPORT TO NIGHT RN. PT SPOUSE RUBBED LOTION ON THE PT BLE AND DID LEG EXERCISES WITH HIM WHILE HE WAS IN THE RECLINER. PT WAS ASSISTED BACK TO BED VIA LIFT, CHANGED AND REPOSITIONED WITH MULTIPLE PILLOWS. PT EXPRESSED AGREEMENT WHEN ASKED IF HE WAS COMFORTABLE.
--- NOTE | 2019-09-05 20:18 | NUR ---
Review of pt with phsycian and neonatal intensive care nurse. theraputic visit with .
--- NOTE | 2019-09-06 07:43 | NUR ---
SHIFT SUMMARY ALERT, RESPONDS MOSTLY NON-VERBALLY. COOPERATIVE WITH CARE. AT BEDSIDE. HAD INCREASED MUCOUS PRODUCTION WITH DESATURATION OVERNIGHT REQUIRING DEEP SUCTION X2. ORAL CARE COMPLETED. REPOSITIONED TOLERATED; WITH ROUTINE ATTENDS CHECKS. NPO TOLERATING TUBE FEEDINGS WITHOUT ANY RESIDUAL. VSS/AFEBRILE. CONTINUED TO MONITOR OVERNIGHT. BED IN LOWEST POSITION. CALL LIGHT WITHIN REACH. REPORT GIVEN TO ONCOMING RN.
--- NOTE | 2019-09-06 15:20 | NUR ---
Spiritual care visit conducted. Patient is sleeping after a rough night so patient's spouse, Jane and I go to the cafeteria to talk. I ask Jane about patient's code status. Jaen shares about her sahil and about the medical events that patient has come back from. I discuss in detail about chest compressions, risk verses benefit interms of what patient may be brought back to after CPR. I talk about how the patient is becoming more weak and depleated. Patient points back to her sahil in the miraculous and that she feels peace about the code status for now but if new information comes in or he declines further she is open to relook at the subject. I pray with patient for comfort and wisdom. Jane also stated that she would have a discussion with Patient's son, Ba, about code status. I will continue to remain available to patient and family.
--- NOTE | 2019-09-06 17:26 | NUR ---
SHIFT SUMMARY PT MOVED TO ROOM 364 TO UTILIZE CEILING LIFT FOR TRANSFERS. OUT TO CXR THIS AFTERNOON BY LUIS. DEEP SUCTIONED 2 TIMES TODAY AND DOING ORAL SUCTIONING AT BEDSIDE. AT TIMES SOUNDS LOOSE AND RATTLY BUT OTHERWISE NO NOTED RESP DISTRESS EXCEPT WHEN NEEDING SUCTION. TOLERATING TUBE FEEDINGS WITH NO RESIDUALS. ABLE TO NOD/SHAKE HEAD TO QUESTIONS AND MAKE SLURRED AND DIFFICULT TO UNDERSTAND COMMENTS. UP TO RECLINER CHAIR VIA LIFT FOR 2 HOURS THIS AFTERNOON.
--- NOTE | 2019-09-06 23:12 | NUR ---
63 year old Male PT with acute CVA Apr 12, 2019 continues NPO and on Peg tube feed per dietary 1.2 teri at 120 ml hr for 12 hours off at 2000. Tolerates with no residual. PT has bioxx and he desats intermittantly from mucus plug which requires RT NT suction via nasal trumpet to resolve. Tachy with desats and oxygen increased alone does not resolve. Good oral care provided with suction setup. at bedside supportive. He has either been Hospitalized or in rehab since Apr 12 2019. At one time reports PT was tolerating modified diet 3 meals per day and didnt require tube feedings. PT in nonverdal speech is sounds. RT UE flaccid RT LE contractures, LT LE contracture. Incontinent of bowel & bladder, perianal and scrotal skin excoriated. Skin care provided to decrease excoriation. Neg for covid 19 and neg resp panel. CXR repeated today shows RT LL pneumonia imroved but LT mid lobe subsequencial atelectisis. LT lung sounds coarse rhonchorous. rooming in
--- NOTE | 2019-09-07 03:03 | NUR ---
PT required another NT suction to clear airway and RT reports large amts of thick white sputum with yellow mucus plugs. Off tube feed at [facility], HOB elevated. Strict NPO with suction swabs for oral care. Low grade temp tachycardia. Skin care to perianal scrotal excoration to prevent further skin breakdown . karacleanse wound sweeper cleaner industrial used to excoriated areas. Boixx alerts staff of desats and elevated pulse. 2 l nc oxygen or room air. at bedside calls frequently.
--- NOTE | 2019-09-07 06:40 | NUR ---
PT having problems with thick mucus plugs he is unable to clear. Requires repeated NT suction due to destas to mid 80s to as low as 70s. Poor cough effort, unable to clear secreation. Oral suction multiple times from NSG NT suction per RT several times. Bioxx monitor intact pulse up to high 120s. Off tube feed since 2029. Strict NPO with oral care with sx swabs. Oxygen 1 to 4 l nc to keep sats greater than 90%.
--- NOTE | 2019-09-07 15:30 | NUR ---
Patient is sitting on a chair and alert. Patient's spouse, Jane is bedside. We talk about our families, our connections to living near each other at different points in the past but never having met. We share pictures of our families. Patient follows very closely with his eyes where the conversation goes and tries to add to the story at times but can only mumble. I listen and I provide companionship and prayer. Patient and Jane respond well and show signs of an elevated mood. I will continue to remain available to patient and family.
--- NOTE | 2019-09-07 16:00 | NUR ---
SUMMARY PT BACK TO BED AFTER SITTING UP IN THE CHAIR FOR SEVERAL HOURS, SPOUSE REMAINS AT THE BEDSIDE, PT REMAINS NON-VERBAL, NASAL TRUMPET IN PLACE TO THE R NARE, PER RT IT CAN BE CHANGED Q 72 HOURS, PT NT SUCTIONED BY THIS RN ONCE, ORALLY DEEP SUCTIONED BY THIS RN OF COPIOUS FERNÁNDEZ SECRETIONS, PT RECIEVING TUBE FEEDS, ALDO WELL, NO RESIDUALS, VSS, WILL CONT TO MONITOR
--- NOTE | 2019-09-07 17:56 | NUR ---
ASSUMED CARE OF PT AT 1615. PT HAS HAD NO CHANGE. ATTENDS CHANGED AND REPOSITIONED.
--- NOTE | 2019-09-08 05:39 | NUR ---
NEURO PSYCH SALES SPECIALIST SUMMARY Slept poorly. up sucioning patient approx every 10-15 minutes each time he coughed. HE on telemetry remained Sinus Tachycardia in 110's all night. RT called once at HS for NT suctioning with good success. Patient was actually able to sleep for about an hour. Small liquid stool overnight mixed with urine. Patient tolerated well. Renetta area rash beginning to improve with nystatin powder.
--- NOTE | 2019-09-08 18:24 | NUR ---
SHIFT SUMMARY- PT IS NONVERBAL. HIS WAS AT THE BEDSIDE FOR THIS SHIFT. SHE IS PREFORMING SUCTIONING NEEDED. PT WAS IN THE RECLINER FOR SEVERAL HOURS THIS AFTERNOON. HE IS RECIEVING HIS TUBE FEEDING AND TOLERATING WELL. HE IS INCONTINENT AND BEING CHANGED NEEDED
--- NOTE | 2019-09-09 05:07 | NUR ---
SHIFT SUMMARY PT HAS HAD NO ACUTE CHANGES THIS SHIFT, MEDICATED FOR FEVER X1 (100.7) RELIEVED BY TYLENOL, WAS ALSO SINUS TACH T/O SHIFT (AT TIMES REACHING INTO 130'S), AFTER METOPROLOL ADMIN PT REMAINED AROUND 100 HR FOR REMAINDER OF SHIFT, AT BEDSIDE T/O SHIFT, REPOS Q2, NO S/SX OF PAIN OR DISCOMFORT, PT SLEEPING AT THIS TIME, CALL LIGHT IN REACH, WILL CONT TO MONITOR UNTIL REPORT GIVEN TO DAY RN.
--- NOTE | 2019-09-09 09:40 | NUR ---
late entry had call from last night theraputic visit on phone she is showing significant caregiver stress. She feels he can still rehab and is hoping to get more pt and speech for him. She is anxious to go back home and to rehab but fears leaving here because she feels safe here and he is getting good care. Will follow up with speech and physicial therapy and chaplians.
--- NOTE | 2019-09-09 14:13 | NUR ---
review of pt with chaplian to assist with wifes distress.
--- NOTE | 2019-09-09 17:47 | NUR ---
Shift Summary A/Ox1 to self. Pleasant with care, was at bedside and assisting with care as needed. Patient has tube feedings running and tolerating well, residual has been zero. Up in chair for most of day, postponed bed bath for tomorrow d/t essential oils placed on patient's skin today. Deep suctioning and chest physiotherapy done by RT once this shift. No other changes. Will continue to monitor.
--- NOTE | 2019-09-09 19:44 | NUR ---
Met with to review some successsfult strategies for discharge and help at home. will update patient care director.
--- NOTE | 2019-09-09 20:00 | NUR ---
RECEIVED REPORT FROM ELAYNE RN. ASSUMED CARE OF PT. IN NO ACUTE DISTRESS AT THIS TIME. AT THE BEDSIDE. PT APPEARS COMFORTABLE. PT AND DENY ANY NEEDS AT THIS TIME. CALL LIGHT AND POSSESSIONS IN REACH, JEVITY 1.2 SADAF ONGOING AT 120ML/HR AT THIS TIME. BED IN LOW POSITION. WILL CONTINUE TO MONITOR.
--- NOTE | 2019-09-10 07:49 | NUR ---
SHIFT SUMMARY: PT REMAINS ASLEEP AT THIS TIME, AT THE BEDSIDE. NO ACUTE EVENTS NOTED T/O NIGHT, TOLERATED FEEDING AT 120 ML/HR, FLUSHES AND MEDICATIONS WELL. PEG TUBE DISCONNECTED FROM TF AT THIS TIME. O2 SATS STABLE ON 2L/NC. REPOSITIONED T/O NIGHT, SKIN KEPT CLEAN AND DRY. PT AND DENY ANY NEEDS AT THIS TIME. CALL LIGHT AND POSSESSIONS IN REACH, REPORT GIVEN TO DAYSHIFT RN.
--- NOTE | 2019-09-10 18:35 | NUR ---
ALERT. HAS BEEN NONVERBAL. TURNED Q 2 HOURS. SUCTIONED T/O SHIFT W/ SHOWN HOW TO USE YANKAUER. NASAL TRUMPET TAKEN OUT RT NARES TO INCREASE PATIENT SATS. MEPILEX TO BILATERAL BUTTOCK CHEEKS W/RT SIDE HAVING SMALL OPENINGS.IV PATENT. PEG TUBE FEEDINGS INFUSING WITHOUT DIFFICULTY AND CHECKED TWICE FOR RESIDUAL W/NONE RECORDED. GOAL IS TO GO HOME WITH HELP IN PLACE. WAS SHOWN ROM. WCTM.
--- NOTE | 2019-09-10 19:10 | NUR ---
ASSUMED CARE RECEIVED REPORT FROM DAY RN. ASSUMED CARE OF PT. NO S/S ACUTE DISTRESS NOTED. RESTING COMFORTABLY, AT THE BEDSIDE. DENIES ANY NEEDS AT THIS TIME. CALL LIGHT, POSSESSIONS IN REACH, BED IN LOWEST POSITION WITH BED ALARM ACTIVATED. WILL CONTINUE TO MONITOR.
--- NOTE | 2019-09-11 02:35 | NUR ---
THIS RN AT BEDSIDE, CONTINUOUS BIOX ALARMING. PT O2 SATS BETWEEN 88-90% ON 2L/NC. INCREASED O2 TO 5L. REPORTS FREQUENT COUGHING EPISODES, SUCTIONING WITH NO SECRETION RETURN. RESPIRATORY THERAPY CALLED, IN TO SEE PT. WILL CONTINUE TO MONITOR.
--- NOTE | 2019-09-11 04:50 | NUR ---
THIS RN AT BEDSIDE TITRATING O2 TO 6L/NC. REPORTS PT O2 SATS FLUCTUATING BETWEEN 88-90%. RESPIRATORY THERAPY PAGED, ENCOURAGED PT TO COUGH, O2 SATS BETWEEN 93-99%. O2 TITRATED DOWN TO 3L/NC. PT COMFORTABLE, NO FURTHER S/S DISTRESS NOTED AT THIS TIME. WILL CONTINUE TO MONITOR.
--- NOTE | 2019-09-11 07:24 | NUR ---
SHIFT SUMMARY PT ASLEEP AT THIS TIME. O2 SATS STABLE ON 3L/NC AT THIS TIME, AT 99-100%. PT EXPERIENCED MULTIPLE EPISODES OF DIAPHORESIS T/O NIGHT, KEPT COOL AND COMFORTABLE. VOICED CONCERNS, ADDRESSED AND REASSURED NEEDED. PT AFEBRILE. TOLERATED MEDS AND FLUSHES WELL, PEG TUBE PLACEMENT VERIFIED WITH 15ML AIR BOLUS AND FLUSHED. HOB MAINTAINED >30 DEGREES. CALL LIGHT, POSSESSIONS IN REACH, BED IN LOWEST POSITION WITH BED ALARM ACTIVATED. REPORT GIVEN TO DAY SHIFT RN.
--- NOTE | 2019-09-11 18:10 | NUR ---
PT AOX1 AND IS A Q2 TURN. PT HAS HAD TWO BMS TODAY, WHICH ARE LOOSE AND HIS SKIN IS GETTING VERY RED IN THE GROIN AND JESSE AREA. CLEAN WELL WITH SHOWER CAPS AND APPLIED NYSTATIN POWDER. PT HAS HIS TUBE FEEDING RUNNING AND IS TOLERATING WELL AT THIS TIME. PT WAS LIFTED UP INTO RECLINER AND IS SITTING WITH IN THE ROOM. WILL CONTINUE TO MONITOR.
--- NOTE | 2019-09-12 05:05 | NUR ---
INCINERATOR PLANT LABORER SUMMARY NO ACUTE CHANGES THIS SHIFT. PT AAO TO SELF AND , MOSTLY NON VERBAL BUT CAN ANSWER SOME BASIC YES/NO QUESTIONS. LIFT FOR TRANSFERS. PT HAS MAINTAINED O2 SATS IN HIGH 90'S THROUGH THE NIGHT ON 3L O2 VIA NC. INCONTINENT OF BOWEL AND BLADDER. Q2H TURN. VSS, WILL CONTINUE TO MONITOR.
--- NOTE | 2019-09-12 14:51 | NUR ---
Spiritual care visit conducted. Patient is alert and spouse, Jane, is bedside. Jane tells me about the plan of care for DC to their home by early next week. Jane explains about all the details that would have to come together for the plan to succeed. She also talks about the worries and concerns. Jeffrey is watching very carefully in the conversation and always looks at me when I talk and nods at appropriate times. Jeffrey even smiles at certain points in the discussion. I listen empathically, encourage self-care, reinforce helpful attitudes and practices and provide pastoral rehabilitation services counselor and prayer. Patient and Jane respond well and show signs of reduced stress. I will continue to remain available to patient and family.
--- NOTE | 2019-09-12 17:16 | NUR ---
SHIFT SUMMARY PT TOLERATING PEG TUBE FEEDING AT THIS TIME. PT GIVEN BED BATH TODAY. DR. MONCADA NOTIFIED OF JESSE AREA SKIN CONDITION. ORDERED TO CONTINUE FREQUENT CHECKS AND USE OF BARRIER CREAM. PT AT BEDSIDE T/O SHIFT. NO OTHER CHANGES IN ASSESSMENT AT THIS TIME. VSS. WILL CONITNUE TO MONITOR UNTIL TURNOVER IS COMPLETE.
--- NOTE | 2019-09-13 06:42 | NUR ---
STUDENT OFFICER SUMMARY NO ACUTE CHANGES THIS SHIFT. PT INCONTINENT OF BOWEL AND BLADDER WITH FREQUENT STOOLS. FREQUENT ATTENDS CHANGES AND REPOSITIONING TO HELP WITH EXCORIATED JESSE AREA. ORANGE CAP BARRIER CREAM ALSO APPLIED. VSS, WILL CONTINUE TO MONITOR.
--- NOTE | 2019-09-13 18:48 | NUR ---
SHIFT SUMMARY PT WAS UP IN CHAIR THIS AFTERNOON WITH LIFT. OXYGEN WAS REMOVED THIS AFTERNOON AND PT'S OXYGEN SATURATION HAS BEEN 95-97% ON ROOM AIR. PT HAS CONTINOUS OXIMETRY IN PLACE. NO COMPLAINTS OF PAIN AND NO SIGNS OF GRIMACING OR MOANING NOTED. JESSE AREA AND BUTTOCKS VERY EXCORIATED. BED BATH WAS DONE THIS AFTERNOON AND PT TOLERATED WELL. NO ACUTE CHANGES AT THIS TIME. CALL LIGHT IN REACH AND SPOUSE AT BEDSIDE. WILL CONTINUE TO MONITOR AND REPORT TO ONCOMING RN.
--- NOTE | 2019-09-14 07:37 | NUR ---
SHIFT SUMMARY- NO ACUTE CHANGES OVERNIGHT. PT. COMPLETED 12 HR TUBE FEEDING AT 2100, WITH 250ML FLUSH. TOLERATED WELL. MEDICATED FOR RT KNEE PAIN X1, WITH GOOD RELIEF. PT. REPOSITIONED Q2 AND FOR COMFORT T/O THE SHIFT. APPEARED TO HAVE SLEPT WELL T/O THE NIGHT. NO APPARENT DISTRESS NOTED. AT BEDSIDE. CALL LIGHT WITHIN REACH AND SIDE RAILS UP X2. WILL CONT TO MONITOR.
--- NOTE | 2019-09-14 14:16 | NUR ---
Spiritual care visit conducted. Patient is alert and watchful. Jane is bedside. She tells me the updates on how things are progressing for the transition to home. She talks about her concerns yet she is more and more excited to be heading that direction. I listen empathically and provide companionship and prayer. Patient and Jane respond well. I will continue to remain available
--- NOTE | 2019-09-14 19:15 | NUR ---
PT. LYING QUIETLY, NO NOTEABLE CHANGES THIS SHIFT. DR. MONCADA WANTED A KNEE BRACE PUT ON PT. BUT THE PT'S LEG IS CONTRACTED, NOTIFIED DR. MONCADA. TOLD HER PT. NEEDS TO WORK WITH THE PT. TO STRAIGHTEN THE KNEE BEFORE A KNEE BRACE CAN BE PUT ON. SAID SHE WOULD GET THEM ON BOARD. SAYS IF SHE MASSAGES FOR 3 HOURS SHE CAN GET IT TO STRAIGHTEN. PT'S BOTTOM IS RED AND EXCORIATED, PINK CREAM AND MEPILEX APPLIED . SCROTUM RED NYSTATIN APPLIED. PT. ON LY GAVE ME YES AND NO ANSWERS WHEN ASKED A DIRECT QUESTION.
--- NOTE | 2019-09-14 22:07 | NUR ---
PATIENT STATING 98% ON 2L O2 NC. NPO. PEG TUBE FEEDING WAS COMPLETE AND TYLENOL CRUSHED AND GIVEN THROUGH PEG TUBE FOR R KNEE PAIN. SPOUSE PRESENT IN ROOM AND ASKED FOR HER LAUNDRY TO BE WASHED. MOBILE DEVICE ENGINEER IS HAVING HER CLOTHES WASHED AND DRIED. CALL LIGHT IN REACH.
--- NOTE | 2019-09-15 03:15 | NUR ---
SHIFT SUMMARY PATIENT HAD NO ACUTE CHANGES OBSERVED. AXOX 2 TO SELF/SPOUSE. MOSTLY NON-VERBAL ANSWERING YES/NO QUESTIONS. NPO. PEG TUBE INTACT. PIV REMAINS INTACT. SPOUSE REPORTED HE HAD RIGHT KNEE PAIN AND TYLENOL GIVEN CRUSHED THROUGH PEG TUBE. ON 2L O2 NC. VSS/AFEBRILE. DENIES SOB AND NV. SPOUSE PRESENT T/O SHIFT AND ASKED FOR HER LAUNDRY TO BE WASHED AND DRY. SYRUP MIXER HELPER COMPLETED REQUEST. CALL LIGHT IN REACH. BED IN LOWEST POSITION. WILL CONTINUE TO MONITOR UNTIL DAY SHIFT NURSE ASSUMES CARE.
--- NOTE | 2019-09-15 16:59 | NUR ---
NO ACUTE CHANGES TO PT. FORMULA CHANGED THIS SHIFT DT INCREASING LOOSE STOOL. AT BEDSIDE.
--- NOTE | 2019-09-15 23:03 | NUR ---
SPOUSE AT SIDE AND SUPPORTIVE.
--- NOTE | 2019-09-16 04:36 | NUR ---
SHIFT SUMMARY: 63 Y/O SLENDER MALE RESTED COMFORTABLY ALL SHIFT WITH AT SIDE WHOM IS VERY SUPPORTIVE AND ASSISTS WITH ALL ADLS; PTS CG REQUIRES EDUCATION ON MANAGING PEG TUBE; PTS SPEECH GARBLED WITH NO UNDERSTANDABLE WORDS NOTED; PT REQUIRES 100% CARE FOR ALL ADLS/IADLS; ALL MEDICATIONS WERE CRUSHED AND GIVEN VIA PEG TUBE; BED LOW POSITION WITH CALL LIGHT AT SIDE.
--- NOTE | 2019-09-16 18:36 | NUR ---
NO ACUTE CHANGES. EDUCATED BY NURSE REGARDING MED ADMINISTRATION PER PEG TUBE, HOW TO USE THE FEEDING MACHING, AND FLUSHING AND MAINTAINING FEEDING TUBE. WILL NEED CONTINUED EDUCATION WHILE PT IN HOSPITAL. PT HAD NO COMPLAINTS OF PAIN. UP IN CHAIR AFTER BEDBATH. PRESENT ALL SHIFT.
--- NOTE | 2019-09-16 21:47 | NUR ---
PT TOLERATED SITTING UP IN CHAIR WELL AND WAS ASSISTED BACK TO BED VIA ROOM LIFT; AT SIDE AND DEMONSTRATED GOOD TECHNIQUE WITH CRUSHING MEDS AND GIVING VIA PEG TUBE. PTS ALSO ASSISTED STAFF WITH CLEANSING UP AFTER LOOSE BM AND APPLYING FRESH ATTENDS AND RESPOSITIONING IN BED; PT NON VERBAL AND ONLY ABLE TO MAKE GRUNTING SOUNDS AT TIMES; PT APPEARS TO HAVE NO PAIN.
--- NOTE | 2019-09-17 03:43 | NUR ---
SHIFT SUMMARY: 63 Y/O MALE RESTED COMFORTABLY ALL SHIFT WITH AT SIDE WHOM DEMONSTRATED GOOD TECHNIQUE WITH PERFORMING ADLS/IADLS TO INCLUDE MANAGING PEG TUBE FEEDINGS AND MEDICATIONS VIA TUBE; PT NON VERBAL WITH CONTRACTURES TO RIGHT SIDE NOTED; PTS PLANNING POSSIBLE DISCHARGE HOME TODAY WITH HOME CARE AND RELOCATION IN NEAR FUTURE TO FAMILY IN [place]; NO PAIN OR NAUSEA NOTED; BED ALARM APPLIED, BED LOW POSITION WITH CALL LIGHT AT SIDE; SPENT NIGHT AT SIDE; PT HAD SLEEP STUDY TONIGHT PERFORMED.
[2019-09-17] MEDS ORDERED: ASPI81CH PT (12:14)
[2019-09-17] MEDS ORDERED: Pedi-Dri 100,0060 GM TOP (12:15)
[2019-09-17] MEDS ORDERED: FLUTICASONE-SA1 EAC1 INH (12:18)
[2019-09-17] MEDS ORDERED: DIABETIC S100 MG/5 M PT (12:20)
[2019-09-17] MEDS ORDERED: Mag-Al Plus Sus30 ML PT (12:24)
[2019-09-17] MEDS ORDERED: TUSSIN MUC100 MG/5 M PT (13:39)
--- NOTE | 2019-09-17 14:30 | NUR ---
Discharge Summary A/Oxself, patient discharge to home with home health. Reviewed discharge paperwork and education with at bedside. Questions were answered. Flutter valve, incentive spirometer, condom cath, and feedings will be sent home with patient. [facility] delivered equipments for suction, suction device, pole, and pump for tube feedings. Reviewed equipment mechanics with . Personal belongings will be sent home. [facility] to transport back to [place] where patient and resides. Meds faxed to preferred pharmacy.
--- NOTE | 2019-09-17 19:56 | NUR ---
PT'S ON PHONE, [facility] RE TF SUPPLIES AND POSSIBLY NOT BEING ABLE TO GIVE HIM A TF TONIGHT. WILL CONTACT [facility] TO SEE WHAT WE CAN DO OR TALK TO THEM ABOUT.
== END 2019-09-17 15:22 | disposition home health service (06) | DRG 871 ==
LOC: ER 09:37 → MEDS 13:57 → PCU 13:57 → MEDS 08-29 14:56 → ENPENDDIS 09-17 11:46 → MEDS 09-17 15:22
PROVIDERS: Emergency Medicine; Internal Medicine; Nurse Practitioner Acute Care; ADMIT Hospitalist
PROC: 8E0ZXY6 Isolation (ICD-10-PCS; principal; 2019-08-24)
DX: A41.9 Sepsis, unspecified organism (principal); J96.01 Acute respiratory failure with hypoxia; J69.0 Pneumonitis due to inhalation of food and vomit; G92 Toxic encephalopathy; I69.351 Hemiplegia and hemiparesis following cerebral infarction affecting right dominant side; E87.6 Hypokalemia; R65.20 Severe sepsis without septic shock; I69.391 Dysphagia following cerebral infarction; I69.320 Aphasia following cerebral infarction; R13.10 Dysphagia, unspecified; E78.5 Hyperlipidemia, unspecified; I10 Essential (primary) hypertension; K21.9 Gastro-esophageal reflux disease without esophagitis; F32.9 Major depressive disorder, single episode, unspecified
CPT/HCPCS: 0099U; 31720; 36415; 36600; 51701; 71045; 71046; 73562-RT; 80048; 80053; 80069; 82803; 82947; 83036; 83605; 83735; 84100; 84145; 85025; 85027; 87040; 93005; 93010; 94667; 94668; 94760; 94762; 96365-59; 96367-59; 96375-59; 97110; 97112; 97162; 97166; 97530; 99285-25; A9270; A9270-GY; J0456; J0696; J1650; J7030; J7050; U0002